=== PATIENT | male | born 1935 | race Caucasian/White ===

== ENCOUNTER 2020-01-19 05:27 | Day surgery (SDC) | payer BC ==
[2020-01-11 16:31] LABS: BASOPHILS # (AUTO) 0.1 X10'3 (0-0.2); MEAN CORPUSCULAR HEMOGLOBIN 32.6 PG (27.0-31.0); MEAN CORPUSCULAR HGB CONC 34.3 g/dL (33.0-36.5); PRE OP HEMOGLOBIN 13.1 g/dL (14.0-17.9)
[2020-01-11 16:33] LABS: BASOPHILS % (AUTO) 1.2 % (0-1); EOSINOPHILS # (AUTO) 0.5 X10'3 (0-0.9); EOSINOPHILS % (AUTO) 10.8 % (0-6); LYMPHOCYTES # (AUTO) 1.7 X10'3 (1.1-4.8); MEAN PLATELET VOLUME 7.6 FL (7.4-10.4); MONOCYTES # (AUTO) 0.5 X10'3 (0-0.9); NEUTROPHILS # (AUTO) 2.2 X10'3 (1.8-7.7); PRE OP HEMATOCRIT 38.1 % (42.0-52.0); PRE OP PLATELET COUNT 265 X10'3 (140-440); RED BLOOD COUNT 4.01 X10'6 (4.70-6.10); RED CELL DISTRIBUTION WIDTH 13.1 % (11.5-14.5)
[2020-01-11 16:34] LABS: PRE OP INR 1.1 INR; PRE OP PROTIME 11.4 SECONDS (9.0-12.0)
[2020-01-11 16:37] LABS: ALBUMIN 3.7 G/DL (3.4-5.0); ALBUMIN/GLOBULIN RATIO 1.1 (1.1-1.5); ALKALINE PHOSPHATASE 65 IU/L (46-116); BLOOD UREA NITROGEN 17 MG/DL (7-18); BUN/CREATININE RATIO 14.4 (5.4-32.0); CALCIUM 8.6 MG/DL (8.5-10.1); CHLORIDE 104 MMOL/L (99-107); CREATININE 1.18 MG/DL (0.60-1.10); PRE OP ALT 24 U/L (30-65); PRE OP ANION GAP 10 (8-16); PRE OP AST 23 U/L (10-37); PRE OP BILIRUB, TOTAL 0.5 MG/DL (0.0-1.0); PRE OP GLUCOSE 92 MG/DL (70-104); PRE OP SODIUM 142 MMOL/L (135-145); TOTAL CARBON DIOXIDE 28.2 MMOL/L (24-32); eGFR 59 ML/MIN
[2020-01-18 19:00] VITALS: BP 136/70
[~2020-01-19] VITALS: Ht 180.3 cm; Wt 96.6 kg
[2020-01-19] VITALS (17 sets, daily range): BP systolic 104–152; BP diastolic 48–110
[~2020-01-19 05:27] MED LIST: ASPI-611 PO; FINA5TAB11 PO; FLO0.4C PO; GABA-534 PO; LISI40TA4 PO; OMEP20TA5 PO; PRAM0.253 PO; ringers solution, lacted 1,000 ML IV SCH
[2020-01-19] MEDS ORDERED: ceFAZolin 2gm in dextrose, iso 50 ML IV ONE (05:30)
[2020-01-19] MEDS ORDERED: famotidine 20mg tablet PO ONE (05:30)
--- NOTE | 2020-01-19 06:00 | NUR ---
TEDS AND SCD'S APPLIED PRE-OP Addendum: 01/19/20 at 0707 by Liz Calixto RN Amended: Links added.
[2020-01-19] MEDS ORDERED: neomy sulf/polymyxin B sulf. GU irrigation 1ml amp IR ONE (07:04)
[2020-01-19] MEDS ORDERED: ringers solution, lacted 1,000 ML IV SCH (07:19)
[2020-01-19] MEDS ORDERED: proCHLORperazine 10 MG/2 ml inj IV PRN ×2 (07:20→09:25)
[2020-01-19] MEDS ORDERED: morphine 2 MG/ML inj. syringe IV PRN (07:20)
[2020-01-19] MEDS ORDERED: ondansetron/PF 4mg/2ml inj IV PRN ×2 (07:20→09:25)
[2020-01-19] MEDS ORDERED: morphine 4 MG/ML inj SYRINge IV PRN (07:20)
[2020-01-19] MEDS ORDERED: meperidine/PF 25mg/ml syringe IV PRN ×3 (07:20)
[2020-01-19] MEDS ORDERED: fentaNYL/PF 50MCG/1 ML 2ML syringe ONE (07:38)
[2020-01-19] MEDS ORDERED: midazolam 2 mg/2 ml injection ONE (07:38)
[2020-01-19] MEDS ORDERED: mineral oil 10ml sterile, topical TP ONE (08:10)
--- NOTE | 2020-01-19 09:11 | NUR ---
RECEIVED FROM OR VIA BED ACCOMPANIED BY ANESTHESIOLOGIST DR MCINTOSH. REPORT GIVEN. PT AWAKE AND ALERT, DENIES PAIN AT THIS TIME. F/C HOOKED UP TO STERILE SALINE IRRIGATION DRAINING PINK TINGED URINE. 20 GAUGE PIV L WRIST PATENT AND RUNNING LR AT 100 ML/HR. WILL, ABD SOFT , VSS, SKIN PINK AND WARM WITH GOOD CAP REFILL. SCDS APPLIED, RESTING COMFORTABLY.
[2020-01-19] MEDS ORDERED: zolpidem 5mg tablet PO PRN (09:25)
[2020-01-19] MEDS ORDERED: oxybutynin 5mg tablet PO PRN (09:25)
[2020-01-19] MEDS ORDERED: LIDOcaine 2% 10ml TOPICAL JELLY (Urojet) TP ONE (09:25)
[2020-01-19] MEDS ORDERED: HYDROcodone/acetaminophen 10/325mg tab PO PRN ×2 (09:25→09:30)
[2020-01-19] MEDS ORDERED: acetaminophen 325mg tablet PO PRN (09:25)
[2020-01-19] MEDS ORDERED: mag hydrox/Alum hydrox/simeth 30ml oral suspension PO PRN (09:25)
--- NOTE | 2020-01-19 10:00 | NUR ---
Report received from CONFERENCE PLANNERHarleen.
--- NOTE | 2020-01-19 10:21 | NUR ---
TRANSFERRED VIA BED ACCOMPANIED BY MYSELF, REPORT GIVEN. PT AWAKE AND ALERT, DENIES PAIN AT THIS TIME. F/C HOOKED UP TO STERILE SALINE IRRIGATION DRAINING CLEAR [place] TINGED URINE. 20 GAUGE PIV L WRIST PATENT AND RUNNING LR AT 100 ML/HR. WILL, ABD SOFT , VSS, SKIN PINK AND WARM WITH GOOD CAP REFILL. SCDS APPLIED, RESTING COMFORTABLY. LEFT IN CARE OF SURGICAL AID
[2020-01-19] MEDS: potassium cl 20mEq in 1/2 NS 1,000 ML IV SCH ×3 (13:00→20:48)
[2020-01-19] MEDS: ceFAZolin/D5W- 1GM premix 50 ML IV SCH ×2 (15:54→23:28)
--- NOTE | 2020-01-19 18:30 | NUR ---
Problems reprioritized. Patient report given, questions answered & plan of care reviewed with SUSAN Jackson.
[2020-01-19] MEDS: docusate sod 100mg capsule PO SCH (20:43)
[2020-01-19] MEDS ORDERED: finasteride 5mg tablet PO SCH (21:00)
[2020-01-19] MEDS ORDERED: tamsulosin 0.4mg capsule PO SCH (21:00)
[2020-01-19] MEDS ORDERED: gabapentin 300mg capsule PO SCH (21:00)
[2020-01-19] MEDS ORDERED: pramipexole 0.25mg tablet PO SCH (21:00)
[2020-01-20] VITALS: BP 115/62
[2020-01-20 05:27] LABS: BASOPHILS % (AUTO) 0.6 % (0-1); EOSINOPHILS # (AUTO) 0.4 X10'3 (0-0.9); EOSINOPHILS % (AUTO) 8.1 % (0-6); HEMATOCRIT 35.3 % (42.0-52.0); HEMOGLOBIN 12.2 g/dl (14.0-17.9); LYMPHOCYTES # (AUTO) 1.3 X10'3 (1.1-4.8); LYMPHOCYTES % (AUTO) 25.7 % (21-51); MEAN CORPUSCULAR HEMOGLOBIN 32.1 PG (27.0-31.0); MEAN CORPUSCULAR HGB CONC 34.6 g/dL (33.0-36.5); MEAN CORPUSCULAR VOLUME 92.8 FL (78-98); MEAN PLATELET VOLUME 7.5 FL (7.4-10.4); MONOCYTES # (AUTO) 0.5 X10'3 (0-0.9); NEUTROPHILS # (AUTO) 2.9 X10'3 (1.8-7.7); NEUTROPHILS % (AUTO) 55.6 % (42-75); PLATELET COUNT 190 X10'3 (140-440); RED CELL DISTRIBUTION WIDTH 13.1 % (11.5-14.5); WHITE BLOOD COUNT 5.1 X10'3 (4.5-11.0)
[2020-01-20 05:38] LABS: ANION GAP 7 (8-16); BLOOD UREA NITROGEN 13 MG/DL (7-18); BUN/CREATININE RATIO 12.6 (5.4-32.0); CHLORIDE 109 MMOL/L (99-107); CREATININE 1.03 MG/DL (0.60-1.10); GLUCOSE 104 MG/DL (70-104); POTASSIUM 3.8 MMOL/L (3.5-5.1); SODIUM 142 MMOL/L (135-145); TOTAL CARBON DIOXIDE 25.7 MMOL/L (24-32); eGFR 69 ML/MIN
--- NOTE | 2020-01-20 06:20 | NUR ---
Patient in room [facility]. I have received report from SUSAN Jackson and had the opportunity to ask questions and assume patient care.
[2020-01-20] MEDS: potassium cl 20mEq in 1/2 NS 1,000 ML IV SCH (06:23)
[2020-01-20 06:30] VITALS: BP 140/86
--- NOTE | 2020-01-20 06:31 | NUR ---
Reported off to Hoa RN. Patient is awake and alert on room air. In no apparent distress. Call light and items of frequent use within reach.
--- NOTE | 2020-01-20 06:31 | NUR ---
Received report from primary care nurse Hoa RN. Patient is awake and alert on room air with grand daughter at the bedside. Call light and items of frequent use within reach.
[2020-01-20] MEDS ORDERED: pantoprazole 40mg Tablet.DR PO SCH ×2 (07:30)
[2020-01-20] MEDS ORDERED: lisinopril 5mg tablet PO SCH (08:00)
[2020-01-20] MEDS: docusate sod 100mg capsule PO SCH (08:00)
[2020-01-20] MEDS: ceFAZolin/D5W- 1GM premix 50 ML IV SCH (08:01)
[2020-01-20] MEDS ORDERED: DOCU-148 PO (10:16)
[2020-01-20 11:53] VITALS: BP 115/67
--- NOTE | 2020-01-20 15:35 | NUR ---
DC inst provided to pt. IV DC'd, tip intact. All belongings sent w/pt. WC to front lobby.
== END 2020-01-20 15:57 | disposition home or self-care (01) ==
LOC: PAS 05:27 → SUR 3N 09:21 → PAS 01-20 15:57
PROVIDERS: ATTEND Urology
DX: N40.1 Benign prostatic hyperplasia with lower urinary tract symptoms (principal); N13.8 Other obstructive and reflux uropathy; R33.8 Other retention of urine; I10 Essential (primary) hypertension; K21.9 Gastro-esophageal reflux disease without esophagitis; E66.9 Obesity, unspecified; Z68.29 Body mass index [BMI] 29.0-29.9, adult; Z79.01 Long term (current) use of anticoagulants; Z79.899 Other long term (current) drug therapy; Z11.59 Encounter for screening for other viral diseases; Z79.82 Long term (current) use of aspirin; Z98.890 Other specified postprocedural states; Z87.891 Personal history of nicotine dependence
CPT/HCPCS: 36415; 52601; 80048; 80053; 82948; 85025; 85610; 85730; 86885; 86900; 86901; 93005; J0690; J2250; J3010; J7120; U0003; A4346; A4355; A4615; G0378; J3480